=== PATIENT | female | born 1985 | race Caucasian/White ===

== ENCOUNTER 2024-06-14 06:37 | Emergency (ER) | payer SELFPAY ==
[~2024-06-14] VITALS: Ht 167.6 cm; Wt 63.5 kg
[2024-06-14] MEDS ORDERED: ONDANSETRON HCl 4 MG/2 ML SDV IV ONE (06:50)
[2024-06-14] MEDS ORDERED: SODIUM CHLORIDE 0.9% 1,000 ML IV ONE ×2 (06:50→08:10)
[2024-06-14 06:53] VITALS: BP 135/95
[2024-06-14] MEDS ORDERED: MORPHINE SULFATE 4 MG/ML VIAL IV ONE (07:00)
[2024-06-14 07:02] VITALS: BP 104/66
[2024-06-14 07:26] LABS: BASO% 0.1 % (0-3); EOS% 1.3 % (0-8); HEMATOCRIT 44.1 % (37.0-47.0); HEMOGLOBIN 13.6 g/dl (12.0-16.0); IMMATURE GRANULOCYTES 0.1 % (0.0-5.0); LYMPH% 14.2 % (15-41); MEAN CELL VOLUME 91.1 fL CALC (80.0-100.0); MEAN CORPUSCULAR HGB 28.1 pG CALC (26.0-32.0); MEAN CORPUSCULAR HGB CONC 30.8 g/dL CAL (32.0-36.0); MONO% 4.1 % (2-13); NEUT# 7.37 thou/uL (2.00-7.15); NEUT% 80.2 % (42-76); RED BLOOD COUNT 4.84 mill/uL (4.20-5.60); RED CELL DISTRI WIDTH 12.9 % (11.5-15.5)
[2024-06-14 07:40] LABS: ALBUMIN 4.4 g/dL (3.2-5.0); CREATININE 1.1 mg/dL (0.5-1.0); POTASSIUM 5.3 mmol/l (3.5-5.1); TOTAL PROTEIN 7.8 g/dL (6.3-8.2)
[2024-06-14] MEDS ORDERED: methylPREDNISolone SODIUM SUCC 125 MG/2 ML SDV IV ONE (07:50)
[2024-06-14] MEDS ORDERED: DiphenhydrAMINE HCL 50 MG/ML SDV IV ONE (07:50)
[2024-06-14 07:52] VITALS: BP 128/87
[2024-06-14 08:00] VITALS: BP 132/96
[2024-06-14] MEDS ORDERED: ZOFRAN4 MG/TAB PO (09:25)
[2024-06-14 09:37] VITALS: BP 132/96
== END 2024-06-14 09:37 | disposition home or self-care (01) | DRG 392 ==
LOC: ED 06:37
PROVIDERS: Family Medicine
DX: R11.2 Nausea with vomiting, unspecified (principal); R19.7 Diarrhea, unspecified
CPT/HCPCS: J1200; J2405; Q9967